=== PATIENT | female | born 1960 | race Caucasian/White ===

== ENCOUNTER 2018-11-02 11:35 | Day surgery (SDC) | payer OTHER ==
[2018-11-02] MEDS ORDERED: Depo-Medrol 40 MG/ML IM ONE (11:36)
[2018-11-02] MEDS ORDERED: DUONEB 0.5-3 MG/3 ml Neb IH ONE ×2 (11:36→11:51)
[2018-11-02] MEDS ORDERED: Sodium Chloride 0.9(Preservative Free) 10 ML IJ ONE (11:36)
[2018-11-02] MEDS ORDERED: Ketamine HCl 50 MG/ML ONE (12:16)
[2018-11-02] MEDS ORDERED: DIPRIVAN 200 MG/20 ML IV ONE (12:16)
[2018-11-02 12:44] VITALS: PULSE 79; O2SAT 92
[2018-11-02] MEDS ORDERED: Lactated Ringers 1,000 ML IV ONE (12:49)
--- NOTE | 2018-11-03 02:32 | XRAY ---
Exam: Right L4-L5 ZAIDA. Intraoperative fluoroscopy was provided for 40 seconds. 4 digital spot images reveal evidence of prior kyphoplasties at L3 and L4. One spinal needle tip is seen projected adjacent to the lower posterior right lateral L4 level at the level of the expected right L4 nerve root. Some contrast has been injected. I also note another needle tip in the lateral projection projected over the lower posterior aspect of the L5 vertebral body. Correlate with intraoperative findings/report.
--- NOTE | 2018-11-03 12:13 | XRAY ---
40 seconds fluoroscopy time in surgery for L4-L5 ZAIDA.
== END 2018-11-02 12:50 | disposition home or self-care (01) ==
LOC: SDC-PAIN 11:35
PROVIDERS: ATTEND Psychiatry & Neurology Pain Medicine
DX: M54.16 Radiculopathy, lumbar region (principal); I10 Essential (primary) hypertension; J44.9 Chronic obstructive pulmonary disease, unspecified; K21.9 Gastro-esophageal reflux disease without esophagitis; F32.9 Major depressive disorder, single episode, unspecified; G62.9 Polyneuropathy, unspecified; D64.9 Anemia, unspecified; Z79.899 Other long term (current) drug therapy
CPT/HCPCS: 64483; 64484; 72100; 77003; 94640; J1030; J2704; Q9966; A9270-GY

== ENCOUNTER 2018-11-23 14:39 | Day surgery (SDC) | payer OTHER ==
[2018-11-23] MEDS ORDERED: Depo-Medrol 40 MG/ML IM ONE (14:40)
[2018-11-23] MEDS ORDERED: Marcaine 0.5% SDV 10 ML IJ ONE (14:40)
[2018-11-23] MEDS ORDERED: Xylocaine 1% Vial 30 ML PF IJ ONE (14:40)
--- NOTE | 2018-11-23 16:39 | XRAY ---
21 seconds of fluoroscopy was used in surgery for a left greater trochanteric bursa and intra-articular hip injection.
--- NOTE | 2018-11-23 16:39 | XRAY ---
Indication: Left hip and greater trochanteric bursa injection. Intraoperative fluoroscopy was provided for 21 seconds. 2 digital spot images submitted for interpretation demonstrates needle tip projecting over the lateral left femur neck and a second needle tip projecting adjacent to the greater trochanter. Small amount of contrast injected for both needle tip placement. Correlate with intraoperative findings/report.
== END 2018-11-23 16:06 ==
LOC: SDC-PAIN 14:39
PROVIDERS: ATTEND Psychiatry & Neurology Pain Medicine
DX: M70.62 Trochanteric bursitis, left hip (principal); M16.12 Unilateral primary osteoarthritis, left hip; I10 Essential (primary) hypertension; J44.9 Chronic obstructive pulmonary disease, unspecified; R56.9 Unspecified convulsions; K21.9 Gastro-esophageal reflux disease without esophagitis; D51.0 Vitamin B12 deficiency anemia due to intrinsic factor deficiency; Z79.899 Other long term (current) drug therapy; Z86.718 Personal history of other venous thrombosis and embolism
CPT/HCPCS: 20610; 73501; 77002; J1030; J2001; Q9966

== ENCOUNTER 2019-04-12 12:31 | Day surgery (SDC) | payer OTHER ==
[2019-04-12] MEDS ORDERED: Xylocaine 1% Vial 30 ML PF IJ ONE (12:32)
[2019-04-12] MEDS ORDERED: Depo-Medrol 40 MG/ML IM ONE (12:32)
[2019-04-12] MEDS ORDERED: Marcaine 0.5% SDV 10 ML IM ONE (12:32)
--- NOTE | 2019-04-12 15:20 | XRAY ---
Indication: Left shoulder intra-articular injection. Intraoperative fluoroscopy was provided for 30 seconds. 2 digital spot images submitted for interpretation demonstrates anterior needle tip projecting over the left humeral head. Small amount of contrast injected for needle tip placement. Correlate with intraoperative findings/report.
--- NOTE | 2019-04-12 16:43 | XRAY ---
30 seconds fluoroscopy time in surgery for right SI joint RFA.
== END 2019-04-12 14:17 | disposition home or self-care (01) ==
LOC: SDC-PAIN 12:31
PROVIDERS: ATTEND Psychiatry & Neurology Pain Medicine
DX: M19.012 Primary osteoarthritis, left shoulder (principal); I10 Essential (primary) hypertension; J44.9 Chronic obstructive pulmonary disease, unspecified; R56.9 Unspecified convulsions; K21.9 Gastro-esophageal reflux disease without esophagitis; Z85.850 Personal history of malignant neoplasm of thyroid; G62.9 Polyneuropathy, unspecified; D51.0 Vitamin B12 deficiency anemia due to intrinsic factor deficiency; Z79.899 Other long term (current) drug therapy
CPT/HCPCS: 20610; 73030; 77002; J1030; J2001; Q9966